=== PATIENT | male | born 1945 | race Caucasian/White ===

== ENCOUNTER 2021-05-07 18:20 | Emergency (ER) | payer MEDICARE, SELFPAY ==
--- NOTE | ~2021-05-07 | CT_ITS ---
EXAMINATION: CT thoracic lumbar wo con EXAM DATE: 05/07/2021 20:12 INDICATION: Fall with back pain . TECHNIQUE: Spiral CT thoracolumbar spine was performed without contrast. Axial, coronal and sagittal images of the thoracic spine were reviewed. Axial, coronal and sagittal images of the lumbar spine we re reviewed. The dose-length product (DLP) for this examination was 2195.82 mGy-cm. The exposure was tailored according to patient size (auto mA exposure control), and iterative reconstruction (ASIR) w as used as additional dose reduction technique. There is no prior study for comparison. FINDINGS: THORACIC SPINE: Some induration, skin thickening right of midline at the cervical thoracic junction, clinical correlation. No evidence of central canal stenosis. Moderate multilevel lower thoracic neura l foraminal stenosis. There are no acute fractures identified. 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 There is small sliding gastroesophageal hiatal hernia. There are no acute fractures identified. Patient has diffuse idiopathic skeletal hyperostosis (DISH). LUMBAR SPINE: Sacroiliac joints appear intact. There is advanced lower lumbar facet arthropathy, mild to moderate multilevel neural foraminal stenosis. Mild to moderate lumbar disc disease. There is no evidence of acute lumbar fracture. There is no disc space widening or traumatic vertebral body sublu xation suspected. Paraspinal soft tissue is unremarkable. Vertebral body and disc heights are well- maintained. A detailed level by level evaluation of spondylosis can be added as addendum if requeste d. IMPRESSION: 1. Some induration, skin thickening right of midline at the cervical thoracic junction, clinical cor relation. 2. Spondylosis, other benign findings. 3. No fracture suspected. Reviewed, dictated and finalized at location [facility] IMPRESSION: 1. Some induration, skin thickening right of midline at the cervical thoracic junction, clinical correlation. 2. Spondylosis, other benign findings. 3. No fracture suspected.
--- NOTE | ~2021-05-07 | CT_ITS ---
EXAMINATION: CT brain wo con, CT cervical spine wo con EXAM DATE: 05/07/2021 19:18 INDICATION: Fall, posterior head injury. Neck pain. TECHNIQUE: Spiral CT of the head was performed without contrast. Axial, coronal and sagittal images were reviewed. Spiral CT of the cervical spine was performed without contrast. Axial images were rev iewed. Coronal and sagittal reformatted images were also reviewed. The dose-length product (DLP) fo r this examination was 681.00 mGy-cm. The exposure was tailored according to patient size, and itera tive reconstruction (ASIR) was used as additional dose reduction technique. There is no prior study for comparison. FINDINGS: HEAD CT: There is no acute intraparenchymal hemorrhage. No evidence of intraparenchymal brain mass lesion. No evidence of acute infarction. There is mild periventricular and subcortical hypodensity, nonspecific but probably related to small vessel ischemic disease. There is mild prominence of the sulci and ventricles related to cerebral atrophy. There is no mass effect or midline shift. There is no obstructive hydrocephalus suspected. There are no extra-axial collections. There are no acute calvarial fractures. Patient has had bilateral ocular lens surgery. Small posterior scalp contusio n and probable laceration. The visualized sinuses and mastoid air cells are well aerated. CERVICAL CT: There is 9 mm low-density region in the left T1 transverse process, measuring fat densit y, probably a hemangioma. There is no evidence of acute cervical fracture. The odontoid process is i ntact. Pre-dens space is normal. Prevertebral soft tissue is normal. There are no soft tissue abno rmalities identified. There is no disc space widening or traumatic vertebral body subluxation suspec chirag. Mild cervical disc disease, moderate arthropathy. A detailed level by level evaluation of spon dylosis can be added as addendum if requested. IMPRESSION: 1. No acute intracranial findings or cervical fracture. 2. Small posterior scalp contusion, probable laceration. Reviewed, dictated and finalized at location [facility] IMPRESSION: 1. No acute intracranial findings or cervical fracture. 2. Small posterior scalp contusion, probable laceration.
[2021-05-07 18:24] VITALS: BP 148/89; PULSE 92; RESP 17; TEMP 37.2; O2SAT 98
--- NOTE | 2021-05-07 18:39 | PC.NURSE ---
Pt c/o neck pain, c-collar placed. Denies being on blood thinners
--- NOTE | 2021-05-07 18:40 | PC.NURSE ---
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 States they let it heal on its own
--- NOTE | 2021-05-07 19:06 | ED.GENADULT ---
HPI - General Adult General Chief complaint: Head Injury Stated complaint: fall, head trauma Time Seen by Provider: 05/07/21 18:52 Source: patient, family and EMS Mode of arrival: EMS Limitations: no limitations History of Present Illness HPI narrative: 76-year-old male presenting to the emergency department for evaluation of a head injury after having a fall on ice and striking the back of his head. Patient reports he was walking when he slipped on the ice falling backwards and striking his head. Patient is unsure if he had any loss of consciousness. Patient is complaining of head and neck pain. Related Data Home Medications Medication Instructions Recorded Confirmed Fish Oil 05/07/21 aspirin PO 05/07/21 Allergies Allergy/AdvReac Type Severity Reaction Status Date / Time codeine AdvReac Hallucinati Verified 05/07/21 18:53 ng morphine AdvReac Hallucinati Verified 05/07/21 18:53 ng Review of Systems Review of Systems: CONSTITUTIONAL: Denies fever, chills, or sweats. EYES: Denies visual changes, redness, or discharge. ENT: Denies rhinorrhea, congestion, sore throat, or otalgia. CARDIOVASCULAR: Denies chest pain, palpitations, or edema. RESPIRATORY: Denies cough or dyspnea. GASTROINTESTINAL: Denies abdominal pain, nausea, vomiting, or diarrhea. GENITOURINARY: Denies dysuria or hematuria. SKIN: Posterior scalp laceration MUSCULOSKELETAL: Does report head neck and back pain NEUROLOGIC: Reports headache but denies any numbness or weakness. PSYCHIATRIC: Denies anxiety or depression. Exam Narrative: APPEARANCE: Well appearing, no pain, no distress, well-nourished. HEAD: normocephalic, scalp laceration EYES: PERRLA/EOMI, conjunctivae clear. NOSE: Normal no drainage NECK: Supple. No adenopathy, no masses. RESPIRATORY: Airway patent, respirations nonlabored. Clear to auscultation bilaterally, no rales, rhonchi, wheezing. CARDIOVASCULAR: Regular rate and rhythm without murmurs rubs or gallops. ABDOMINAL: Soft, nontender, nondistended, normal bowel sounds MUSCULOSKELETAL: Moves all extremities. Strength/ROM intact, No edema, No calf tenderness. Patient did have tenderness to thoracic and lumbar spine. no step-offs NEURO: Alert. Cranial nerves II through XII intact. Good gait. Good coordination SKIN: 2 cm posterior scalp laceration PSYCHIATRIC: Normal affect/mood. Course Reevaluation(s) Reevaluation #1: Patient's laceration was repaired with cody. Patient's head, cervical spine, thoracic spine and lumbar spine CTs were negative. Initially the head and cervical spine CTs were ordered. But due to him having persistent thoracic and lumbar tenderness after the ground-level fall additional imaging was ordered. These were negative. Patient was able to ambulate at his baseline. Patient and updated on the results of the imaging and wound care. All questions concerns were addressed. Patient was in no distress at time of discharge from emergency room. Date: 05/07/21 Time: 21:09 Vital Signs Vital signs: Vital Signs Temperature 99 F 05/07/21 18:24 Pulse Rate 92 05/07/21 18:24 Respiratory Rate 17 05/07/21 18:24 Blood Pressure 148/89 H 05/07/21 18:24 Pulse Oximetry 98 05/07/21 18:24 Temperature 99 F 05/07/21 18:24 Pulse Rate 78 05/07/21 21:27 Respiratory Rate 15 05/07/21 21:27 Blood Pressure 154/78 H 05/07/21 21:27 Pulse Oximetry 97 05/07/21 21:27 Procedures Laceration Laceration 1: Time: 20:01 Site: scalp Size (cm): 2 Description: linear Depth: simple, single layer Local Anesthetic: lidocaine 1% Amount of anesthesia used (mL): 5 Pre-repair: wound explored ====== Skin Level ====== Skin layer closed with: cody Number of sutures: 6 ====== Subcutaneous Layer ====== ====== Muscle Layer ====== ====== Tendon Layer ====== Medical Decision Making Vital Signs Vital Signs: Vital Si
--- NOTE | 2021-05-07 19:53 | PC.NURSE ---
EDP at bedside removed C Collar
[2021-05-07 19:54] VITALS: BP 178/94; PULSE 81; RESP 15; O2SAT 95
--- NOTE | 2021-05-07 20:06 | PC.NURSE ---
Pt to CT scan at this time.
[2021-05-07 21:27] VITALS: BP 154/78; PULSE 78; RESP 15; O2SAT 97
== END 2021-05-07 21:28 | disposition home or self-care (01) ==
PROVIDERS: Emergency Provider Emergency Medicine; PCP Physician Assistant
DX: S01.01XA Laceration without foreign body of scalp, initial encounter (principal); S29.9XXA Unspecified injury of thorax, initial encounter; S39.92XA Unspecified injury of lower back, initial encounter; Z79.01 Long term (current) use of anticoagulants; W01.0XXA Fall on same level from slipping, tripping and stumbling without subsequent striking against object, initial encounter
CPT/HCPCS: 12001; 70450; 72125; 72128; 72131; 99284; L0140